=== PATIENT | male | born 1980 | race Caucasian/White ===

== ENCOUNTER 2018-07-21 10:28 | Emergency (ER) | payer OTHER ==
[2018-07-21 10:38] VITALS: BP 145/90; PULSE 64; TEMP 98.5; BMI 30.2
[2018-07-21] MEDS ORDERED: ACETAMINOPHEN 325 MG TABLET (FP) PO ONE (11:06)
--- NOTE | 2018-07-21 11:06 | PDOC ---
History of Present Illness - General History Source: Patient Exam Limitations: No Limitations - History of Present Illness Initial Comments: 07/21/18 11:26 The patient is a 37-year-old male with no past medical history presents to the emergency department s/p a fall. The patient reports he was at work, on a ladder that was placed on a wet floor on top of the plastic. The patient reports the ladder slipped, leading to the fall. The patient reports he sustained an injury to the right frontal forehead, elbows and bilateral legs. The patient presents with a laceration to the right knee thats covered in gauze. The patient reports pain to the elbows and the posterior neck. Denies LOC , headache, chest pain, shortness of breath, numbness, tingling or loss of sensation. Allergies: NKDA Social history: Occasional alcohol use, no tobacco or drug use reported PCP: None reported <Liya Horn - Last Filed: 07/21/18 11:25> <Amanda Child - Last Filed: 07/21/18 16:18> - General Chief Complaint: Injury Stated Complaint: FALL/INJURY Time Seen by Provider: 07/21/18 11:00 Past History <Liya Horn - Last Filed: 07/21/18 11:25> - Past Medical History COPD: No - Suicide/Smoking/Psychosocial Hx Smoking History: Never smoked Hx Alcohol Use: Yes (occasional) Drug/Substance Use Hx: No <Amanda Child - Last Filed: 07/21/18 16:18> - Past Medical History Allergies/Adverse Reactions: Allergies Allergy/AdvReac Type Severity Reaction Status Date / Time No Known Allergies Allergy Unverified 07/21/18 10:38 Home Medications: Ambulatory Orders Cephalexin Monohydrate [Keflex -] 500 mg PO Q6H #28 capsule 07/21/18 Review of Systems - Review of Systems Comments:: 07/21/18 11:25 GENERAL/CONSTITUTIONAL: No fever or chills. No weakness. HEAD, EYES, EARS, NOSE AND THROAT: +bump to the R side forehead. No change in vision. No ear pain or discharge. No sore throat. CARDIOVASCULAR: No chest pain or shortness of breath. RESPIRATORY: No cough, wheezing, or hemoptysis. GASTROINTESTINAL: No nausea, vomiting, diarrhea or constipation. GENITOURINARY: No dysuria, frequency, or change in urination. MUSCULOSKELETAL: +neck pain. No joint or muscle swelling or pain. No back pain. EXTREMITY: +cut to the right knee. Elbow pain SKIN: No rash NEUROLOGIC: No headache, vertigo, loss of consciousness, or change in strength/ sensation. ENDOCRINE: No increased thirst. No abnormal weight change. HEMATOLOGIC/LYMPHATIC: No anemia, easy bleeding, or history of blood clots. ALLERGIC/IMMUNOLOGIC: No hives or skin allergy. <Liya Horn - Last Filed: 07/21/18 11:25> *Physical Exam - Vital Signs Last Vital Signs Temp Pulse Resp BP Pulse Ox 98.5 F 64 18 145/90 100 07/21/18 10:36 07/21/18 10:36 07/21/18 10:36 07/21/18 10:36 07/21/18 10:36 <KoryLiya - Last Filed: 07/21/18 11:25> - Vital Signs Last Vital Signs Temp Pulse Resp BP Pulse Ox 98.5 F 64 18 145/90 100 07/21/18 10:36 07/21/18 10:36 07/21/18 10:36 07/21/18 10:36 07/21/18 10:36 - Physical Exam Comments: GENERAL: Awake, alert, and fully oriented, in no acute distress HEAD: Medium-sized hematoma to R upper forehead. +Localized tenderness. EYES: PERRLA, EOMI, sclera anicteric, conjunctiva clear ENT: Auricles normal inspection, hearing grossly normal, nares patent, oropharynx clear without exudates. Moist mucosa NECK: Normal ROM, supple, no lymphadenopathy, JVD, or masses LUNGS: Breath sounds equal, clear to auscultation bilaterally. No wheezes, and no crackles HEART: Regular rate and rhythm, normal S1 and S2, no murmurs, rubs or gallops ABDOMEN: Soft, nontender, normoactive bowel sounds. No guarding, no rebound. No masses EXTREMITIES: R knee with lac overlying the patella, no active bleeding. FROM, no N/V deficits. Remainder of extremities with normal range of motion, no edema. No clubbing or cyanosis. No cords, erythema, or tenderness NEUROLOGICAL: Cranial nerves II through XII grossly intact. Normal speech, normal gait. Motor and sensation intact. SKIN: Warm, Dry, normal turgor, no rashes or lesions noted. SPINE: +Midline tenderness C7. <Amanda Child - Last Filed: 07/21/18 16:18> Moderate Sedation - Procedure Monitoring Vital Signs: Procedure Monitoring Vital Signs Temperature 98.5 F 07/21/18 10:36 Pulse Rate 64 07/21/18 10:36 Respiratory Rate 18 07/21/18 10:36 Blood Pressure 145/90 07/21/18 10:36 O2 Sat by Pulse Oximetry (%) 100 07/21/18 10:36 <Liya Horn - Last Filed: 07/21/18 11:25> - Procedure Monitoring Vital Signs: Procedure Monitoring Vital Signs Temperature 98.5 F 07/21/18 10:36 Pulse Rate 64 07/21/18 10:36 Respiratory Rate 18 07/21/18 10:36 Blood Pressure 145/90 07/21/18 10:36 O2 Sat by Pulse Oximetry (%) 100 07/21/18 10:36 <Amanda Child - Last Filed: 07/21/18 16:18> Procedures - Laceration/Wound Repair Right Anterior Knee Wound Length: 2.6 to 5.0 cm Wound Explored: contaminated Wound's Depth, Shape: irregular (into subcutaneous tissue), contused tissue Irrigated w/ Saline: Yes Anesthesia: 1% Lidocaine Amount of Anesthetic (ccs): 6 Wound Debrided: minimal Wound Repaired With: Sutures Suture Size/Type: 4:0, nylon Number of Sutures: 9 Layer Closure: No Sterile Dressing Applied: Yes Splint Applied: Yes Type of Splint Applied: knee immobilizer Progress: +Hemostasis, patient tolerated well. Dressed with xeroform, kerlix. <Amanda Child - Last Filed: 07/21/18 16:18> ED Treatment Course - Medications Given in the ED: ED Medications Discontinued Medications Generic Name Dose Route Start Last Admin Trade Name Bahman PRN Reason Stop Dose Admin Acetaminophen 650 mg 07/21/18 11:06 07/21/18 11:21 Tylenol - PO 07/21/18 11:07 650 mg ONCE ONE Administration Diphtheria/Tetanus/Acell Pertussis 0.5 ml 07/21/18 11:07 07/21/18 11:21 Adacel Adolescent/Adult - IM 07/21/18 11:08 0.5 ml .ONCE ONE Administration <Liya Horn - Last Filed: 07/21/18 11:25> Medical Decision Making - Medical Decision Making 07/21/18 11:13 Will update tetanus booster in ED. CTH and c-spine, XR knee. Repair lac. <Amanda Child - Last Filed: 07/21/18 16:18> *DC/Admit/Observation/Transfer - Attestations Scribe Attestion: 07/21/18 11:27 Documentation prepared by Liya Horn, acting as outside medical sales representative for Amanda Child MD. <Liya Horn - Last Filed: 07/21/18 11:25> - Discharge Dispostion Decision to Admit order: No <Amanda Child - Last Filed: 07/21/18 16:18> Diagnosis at time of Disposition: Laceration of knee Qualifiers: Encounter type: initial encounter Laterality: unspecified laterality Qualified Code(s): S81.019A - Laceration without foreign body, unspecified knee, initial encounter Head injury Qualifiers: Encounter type: initial encounter Qualified Code(s): S09.90XA - Unspecified injury of head, initial encounter - Discharge Dispostion Disposition: HOME Condition at time of disposition: Stable - Prescriptions Prescriptions: Cephalexin Monohydrate [Keflex -] 500 mg PO Q6H #28 capsule - Referrals Referrals: Josué Albrecht MD [Staff Physician] - - Patient Instructions Printed Discharge Instructions: DI for Laceration Repair -- Simple, DI for Closed Head Injury Additional Instructions: Regrese a la mary de emergencias entre el 10 y el 12 de diciembre para que le quiten los puntos. Mantenga la herida seca y limpia, no use lociones, cremas, jabones o perxido. Si tiene enrojecimiento, dolor intenso, fiebre o cualquier otra inquietud, regrese a la mary de emergencias inmediatamente. Print Language: THAI
[2018-07-21] MEDS ORDERED: DIPHTH,PERTUSS(ACELL),TET VAC 0.5 ML VIAL IM ONE (11:07)
[2018-07-21] MEDS ORDERED: ACETAMINOPHEN 325 MG TABLET (FP) ONE (11:13)
[2018-07-21] MEDS ORDERED: DIPHTH,PERTUSS(ACELL),TET 0.5 ML DISP.SYRIN IM ONE (11:14)
[2018-07-21] MEDS ORDERED: LIDOCAINE HCL 1%, 10 MG/ML (50 mL VIAL) INF ONE (12:44)
[2018-07-21] MEDS ORDERED: LIDOCAINE HCL 2% (20ML MULTI-DOSE VIAL) NR ONE (12:48)
[2018-07-21] MEDS ORDERED: CEPHALEXIN MONOHYDRATE 500 MG CAPSULE (UD) PO ONE (13:14)
[2018-07-21] MEDS ORDERED: CEPHALEXIN MONOHYDRATE 500 MG CAPSULE (UD) ONE (13:37)
== END 2018-07-21 13:56 | disposition home or self-care (01) ==
LOC: JER 10:28
PROC: 3E0234Z Introduction of Serum, Toxoid and Vaccine into Muscle, Percutaneous Approach (ICD-10-PCS; principal; 2018-07-21)
PROC: 0JQN0ZZ Repair Right Lower Leg Subcutaneous Tissue and Fascia, Open Approach (ICD-10-PCS; 2018-07-21)
DX: S81.011A Laceration without foreign body, right knee, initial encounter (principal); W11.XXXA Fall on and from ladder, initial encounter; Y93.89 Activity, other specified; Y92.89 Other specified places as the place of occurrence of the external cause; Y99.0 Civilian activity done for income or pay
CPT/HCPCS: 70450-TC; 72125-TC; 73562-TC-RT-FY; 73590-TC-RT-FY; 99282-25

== ENCOUNTER 2018-07-31 09:49 | Emergency (ER) | payer SELFPAY ==
[2018-07-31 10:01] VITALS: BP 124/76; PULSE 80; TEMP 97.8; BMI 31.1
--- NOTE | 2018-07-31 11:13 | PDOC ---
Suture Removal/Wound Check HPI - History of Present Illness Chief Complaint: Revisit,Wound Recheck Stated Complaint: PAIN, RT FOOT Time Seen by Provider: 07/31/18 10:57 History Source: Yes: Patient Exam Limitations: Yes: No Limitations Treated at: [facility] - Previous ED Treatment Type of procedure performed on last visit: Yes: Laceration Repair Tetanus Immunization: Yes: Up to Date Antibiotics Prescribed: No - Onset of Previous Treatment Comment:: 07/31/18 11:09 Patient here for wound check of right knee fell from ladder 10 days ago and was evaluated here. X-ray was negative for fractures or problems however patient required multiple sutures to a patellar area laceration. Denies redness, swelling, purulent drainage problems with knee. Does not feel sutures are ready for removal. Is wearing knee immobilizer. Past History - Travel Traveled outside of the country in the last 30 days: No Close contact w/someone who was outside of country & ill: No - Past Medical History Allergies/Adverse Reactions: Allergies Allergy/AdvReac Type Severity Reaction Status Date / Time No Known Allergies Allergy Unverified 07/21/18 10:38 Home Medications: Ambulatory Orders Cephalexin Monohydrate [Keflex -] 500 mg PO Q6H #28 capsule 07/21/18 COPD: No CHF: No Liver Disease: No - Surgical History Abdominal Surgery: No Lung Surgery: No - Immunization History Immunization Up to Date: No - Suicide/Smoking/Psychosocial Hx Smoking History: Never smoked Have you smoked in the past 12 months: No Information on smoking cessation initiated: No Hx Alcohol Use: No Drug/Substance Use Hx: No Suture Removal/Wound Check PE - Physical Exam Laceration/Wound Check Symptoms: reports: None Current Severity Level: None *Review of Systems - Review of Systems Able to Perform ROS?: Yes Constitutional: Yes: Symptoms Reported, See HPI HEENTM: Yes: See HPI. No: Symptoms Reported Respiratory: No: Symptoms reported Musculoskeletal: Yes: Symptoms Reported, See HPI, Joint Pain, Joint Swelling ( right knee) All Other Systems: Reviewed and Negative *Physical Exam - Vital Signs Last Vital Signs Temp Pulse Resp BP Pulse Ox 97.8 F 80 18 124/76 100 07/31/18 09:58 07/31/18 09:58 07/31/18 09:58 07/31/18 09:58 07/31/18 09:58 - Physical Exam General Appearance: Yes: Nourished, Appropriately Dressed, Apparent Distress, Mild Distress HEENT: positive: TMs Normal, Pharynx Normal Neck: positive: Supple, Lymphadenopathy (R), Lymphadenopathy (L) Respiratory/Chest: positive: Lungs Clear, Normal Breath Sounds Musculoskeletal: negative: Vertebral Tenderness Extremity: positive: Normal Capillary Refill, Normal Inspection Integumentary: positive: Other Neurologic: positive: community organization worker II-XII NML intact, Fully Oriented, Alert, Normal Mood/ Affect, Normal Response, Motor Strength 5/5 Moderate Sedation - Procedure Monitoring Vital Signs: Procedure Monitoring Vital Signs Temperature 97.8 F 07/31/18 09:58 Pulse Rate 80 07/31/18 09:58 Respiratory Rate 18 07/31/18 09:58 Blood Pressure 124/76 07/31/18 09:58 O2 Sat by Pulse Oximetry (%) 100 07/31/18 09:58 Medical Decision Making - Medical Decision Making 07/31/18 knee laceration site not well approximated, will even an additional 1 week to allow for further wound healing. Patient encouraged to use immobilizer until sutures are removed and to rest *DC/Admit/Observation/Transfer Diagnosis at time of Disposition: Visit for wound check - Discharge Dispostion Disposition: HOME Condition at time of disposition: Stable Decision to Admit order: No - Referrals - Patient Instructions Printed Discharge Instructions: How to Care for a Surgical Wound Additional Instructions: Rest, ice to area on and off for 15 minutes 4-6 times a day Avoid heavy lifting or exercise until pain and swelling is resolved or until further directed Keep area highly elevated to reduce swelling Use splints/Maldonado wrap as directed return to emergency room in one week for suture removal, May use ibuprofen 2-200 mg tablets every 6 hours as needed for pain - Post Discharge Activity Forms/Work/School Notes: Back to Work
== END 2018-07-31 11:30 | disposition home or self-care (01) ==
LOC: JERFT 09:49
DX: Z48.01 Encounter for change or removal of surgical wound dressing (principal)
CPT/HCPCS: 99281-25

== ENCOUNTER 2018-08-07 09:27 | Emergency (ER) | payer SELFPAY ==
[2018-08-07 09:46] VITALS: BP 142/84; PULSE 62; TEMP 98.1; BMI 31.1
--- NOTE | 2018-08-07 11:27 | PDOC ---
Suture Removal/Wound Check HPI - History of Present Illness Chief Complaint: Suture/Staple Removal(Here) Stated Complaint: PAIN,RT FT Time Seen by Provider: 08/07/18 10:30 History Source: Yes: Patient Exam Limitations: Yes: No Limitations Treated at: [facility] ED - Previous ED Treatment Type of procedure performed on last visit: Yes: Laceration Repair Tetanus Immunization: Yes: Up to Date Antibiotics Prescribed: Yes (keflex) Past History - Travel Traveled outside of the country in the last 30 days: No Close contact w/someone who was outside of country & ill: No - Past Medical History Allergies/Adverse Reactions: Allergies Allergy/AdvReac Type Severity Reaction Status Date / Time No Known Allergies Allergy Unverified 08/07/18 09:43 Home Medications: Ambulatory Orders Cephalexin Monohydrate [Keflex -] 500 mg PO Q6H #28 capsule 07/21/18 COPD: No CHF: No Liver Disease: No - Surgical History Abdominal Surgery: No Lung Surgery: No - Immunization History Immunization Up to Date: No - Suicide/Smoking/Psychosocial Hx Smoking History: Never smoked Have you smoked in the past 12 months: No Hx Alcohol Use: No Drug/Substance Use Hx: No Suture Removal/Wound Check PE - Physical Exam Laceration/Wound Check Symptoms: reports: Resolved. denies: Fever, Redness, Bleeding Current Severity Level: None Maximum Severity Level: None Pain Localization: None Location of Laceration/Wound: right: Knee *Review of Systems - Review of Systems Constitutional: No: Chills, Fever, Weakness Integumentary: No: Bruising, Erythema, Pruritus Neurological: No: Numbness, Tingling, Weakness All Other Systems: Reviewed and Negative *Physical Exam - Vital Signs Last Vital Signs Temp Pulse Resp BP Pulse Ox 98.1 F 62 18 142/84 97 08/07/18 09:43 08/07/18 09:43 08/07/18 09:43 08/07/18 09:43 08/07/18 09:43 - Physical Exam General Appearance: Yes: Nourished, Appropriately Dressed, Apparent Distress Vascular Pulses: Dorsalis-Pedis (R): 2+, Doralis-Pedis (L): 2+ Musculoskeletal: negative: Decreased Range of Motion (Knee R ROM intactk) Extremity: positive: Normal Capillary Refill, Normal Inspection, Normal Range of Motion. negative: Tender Integumentary: positive: Normal Color, Dry, Warm, Other (Sutures in place to the R knee. Wound is well healed and approximated at this time) Neurologic: positive: Fully Oriented, Alert, Normal Mood/Affect, Normal Response , Motor Strength 5/5 Moderate Sedation - Procedure Monitoring Vital Signs: Procedure Monitoring Vital Signs Temperature 98.1 F 08/07/18 09:43 Pulse Rate 62 08/07/18 09:43 Respiratory Rate 18 08/07/18 09:43 Blood Pressure 142/84 08/07/18 09:43 O2 Sat by Pulse Oximetry (%) 97 08/07/18 09:43 Medical Decision Making - Medical Decision Making 08/07/18 11:41 Pt presents for suture removal to the R knee -Wound is well healed and approximated at this time. No signs of infection -9 sutures removed in the ED -DC home -I discussed the physical exam findings, ancillary test results and final diagnoses with the patient. I answered all of the patient's questions. The patient was satisfied with the care received and felt comfortable with the discharge plan and treatment plan. The Patient agrees to follow up with the primary care physician/specialist within 24-72 hours. Return precautions were given. *DC/Admit/Observation/Transfer Diagnosis at time of Disposition: Visit for suture removal - Discharge Dispostion Disposition: HOME Condition at time of disposition: Stable Decision to Admit order: No - Referrals Referrals: Josué Albrecht MD [Staff Physician] - - Patient Instructions Printed Discharge Instructions: DI for Suture Removal Additional Instructions: You had your sutures/ashley removed today. Please use bacitracin on the site for the next week. Avoid soaking the area with water for 1 more week as to what the wound fully heal. Follow-up with her primary care doctor as needed Return to the emergency department if you develop fevers, drainage from the site , increased pain, or have any changes in your symptoms. Te quitaron las suturas / grapas hoy. Por favor, use bacitracin en el sitio para la prxima semana. Evite remojar el khoa con agua cathleen 1 semana ms para que la herida sane por completo. Seguimiento con zuniga mdico de atencin primaria segn sea necesario Regrese al departamento de emergencias si desarrolla fiebre, drenaje del sitio, aumento del dolor o si tiene algn cambio en bethel sntomas. Print Language: TAJIK - Post Discharge Activity Forms/Work/School Notes: Back to Work
== END 2018-08-07 11:42 | disposition home or self-care (01) ==
LOC: JERFT 09:27
CPT/HCPCS: 99281-25

== ENCOUNTER 2022-06-06 14:49 | Inpatient (IN) | payer MEDICARE, OTHER ==
[2022-06-06 14:56] VITALS: BMI 30.2
[2022-06-06] MEDS ORDERED: SODIUM CHLORIDE 0.9% 500 ML INFUS.BAG IV ONE (17:40)
[2022-06-06] MEDS ORDERED: KETOROLAC TROMETHAMINE 15 MG/ML VIAL IVPUSH ONE (17:40)
[2022-06-06] MEDS ORDERED: FAMOTIDINE 20 MG/50 ML IVPB 20 MG/50 ML MG IVPB ONE ×2 (17:41→18:25)
[2022-06-06] MEDS ORDERED: ONDANSETRON 4 MG/2 ML VIAL IVPUSH ONE (17:47)
[2022-06-06] MEDS ORDERED: KETOROLAC TROMETHAMINE 15 MG/ML VIAL ONE (18:24)
[2022-06-06] MEDS ORDERED: ONDANSETRON 4 MG/2 ML VIAL ONE (18:24)
[2022-06-06 19:07] LABS: BASO % 0.5 % (0-2.0); EOS % 1.5 % (0-4.5); HEMATOCRIT 18.5 % (35.4-49); LYMPH % 18.3 % (8-40); MCHC 28.9 g/dl (32.0-35.9); MEAN CELL VOLUME 66.3 fl (80-96); MEAN PLT VOLUME 9.6 fl (7.5-11.1); MONO % 5.3 % (3.8-10.2); NEUT % 74.4 % (42.8-82.8); PLATELET COUNT 266 10^3/uL (134-434); RBC 2.78 M/mm3 (4.00-5.60); RDW 21.1 % (11.9-15.9); WHITE BLOOD COUNT 7.9 K/mm3 (4.0-10.0)
[2022-06-06 19:09] LABS: MCH 19.2 pg (25.7-33.7)
[2022-06-06 19:11] LABS: HEMOGLOBIN 5.3 GM/dL (11.7-16.9)
[2022-06-06 19:15] LABS: INR 1.16 (0.83-1.09); PROTHROMBIN TIME (PATIENT) 13.4 SEC (9.7-13.0)
[2022-06-06 19:25] LABS: PH,URINE 5.5 (5.0-8.0); URINE APPEARANCE CLEAR; URINE BILIRUBIN NEGATIVE (NEGATIVE); URINE COLOR YELLOW; URINE GLUCOSE (UA) NEGATIVE (NEGATIVE); URINE KETONE NEGATIVE (NEGATIVE); URINE LEUK ESTERASE NEGATIVE (NEGATIVE); URINE NITRITE NEGATIVE (NEGATIVE); URINE PROTEIN NEGATIVE (NEGATIVE); URINE UROBILINOGEN 0.2 mg/dL (0.2-1.0)
[2022-06-06 19:40] LABS: ALBUMIN 3.4 g/dl (3.4-5.0); BLOOD UREA NITROGEN 15.8 mg/dL (7-18); CALCIUM 8.8 mg/dL (8.5-10.1)
[2022-06-06 19:43] LABS: CREATININE 0.9 mg/dL (0.55-1.3)
[2022-06-06 19:45] LABS: BILIRUBIN,TOTAL 0.3 mg/dL (0.2-1); TOT PROT 6.8 g/dl (6.4-8.2)
[2022-06-06 21:28] LABS: ANISOCYTOSIS 2+; MACROCYTOSIS 0; OVALOCYTE 1+; TEAR DROP CELLS 1+
[2022-06-07 06:36] LABS: HEMATOCRIT 23.3 % (35.4-49); MCH 21.6 pg (25.7-33.7); MCHC 30.2 g/dl (32.0-35.9); MEAN CELL VOLUME 71.5 fl (80-96); MEAN PLT VOLUME 10.2 fl (7.5-11.1); PLATELET COUNT 228 10^3/uL (134-434); RBC 3.26 M/mm3 (4.00-5.60); RDW 23.5 % (11.9-15.9); WHITE BLOOD COUNT 7.3 K/mm3 (4.0-10.0)
[2022-06-07 06:53] LABS: ALBUMIN 2.9 g/dl (3.4-5.0); BLOOD UREA NITROGEN 15.7 mg/dL (7-18); CALCIUM 8.1 mg/dL (8.5-10.1); MAGNESIUM 2.1 mg/dL (1.8-2.4)
[2022-06-07 06:56] LABS: CREATININE 0.9 mg/dL (0.55-1.3)
[2022-06-07 06:57] LABS: TOT PROT 5.9 g/dl (6.4-8.2)
[2022-06-07] MEDS: PANTOPRAZOLE 40 MG TABLET PO SCH ×2 (10:28→21:42)
[2022-06-07] MEDS ORDERED: IRON SUCROSE INJECTION 200 MG in SODIUM CHLORIDE 90 ML IVPB ONE (10:30)
[2022-06-07] MEDS ORDERED: PHYTONADIONE 10 MG/1 ML AMP IVPB ONE (15:35)
[2022-06-08] MEDS: PANTOPRAZOLE 40 MG TABLET PO SCH ×2 (10:00→21:16)
[2022-06-08 10:03] LABS: BASO % 0.6 % (0-2.0); EOS % 2.3 % (0-4.5); HEMATOCRIT 27.2 % (35.4-49); HEMOGLOBIN 8.7 GM/dL (11.7-16.9); LYMPH % 12.5 % (8-40); MCH 22.7 pg (25.7-33.7); MCHC 32.2 g/dl (32.0-35.9); MEAN CELL VOLUME 70.6 fl (80-96); MEAN PLT VOLUME 9.5 fl (7.5-11.1); NEUT % 78.6 % (42.8-82.8); PLATELET COUNT 238 10^3/uL (134-434); RBC 3.85 M/mm3 (4.00-5.60); RDW 23.2 % (11.9-15.9); WHITE BLOOD COUNT 8.4 K/mm3 (4.0-10.0)
[2022-06-08 10:08] LABS: INR 1.15 (0.83-1.09); PROTHROMBIN TIME (PATIENT) 13.3 SEC (9.7-13.0)
[2022-06-08 10:31] LABS: CALCIUM 8.6 mg/dL (8.5-10.1)
[2022-06-08 10:32] LABS: ALBUMIN 3.2 g/dl (3.4-5.0); BLOOD UREA NITROGEN 13.9 mg/dL (7-18); MAGNESIUM 2.2 mg/dL (1.8-2.4)
[2022-06-08 10:36] LABS: CREATININE 0.9 mg/dL (0.55-1.3)
[2022-06-08 10:37] LABS: BILIRUBIN,TOTAL 0.7 mg/dL (0.2-1); TOT PROT 6.5 g/dl (6.4-8.2)
[2022-06-08] MEDS ORDERED: MIDAZOLAM HCL 2 MG/2 ML SINGLE DOSE VIAL ONE (10:52)
[2022-06-08 12:16] VITALS: RESP 16
[2022-06-08] MEDS ORDERED: IRON SUCROSE INJECTION 100 MG in SODIUM CHLORIDE 95 ML IVPB ONE (13:15)
[2022-06-08 23:07] VITALS: BP 116/92; PULSE 69; TEMP 99.3
[2022-06-09 08:06] LABS: CARCINOEMBRYONIC ANTIGEN 1.1 ng/mL (0.0-4.7)
== END 2022-06-08 22:30 | disposition short-term general hospital (02) | DRG 240 ==
LOC: JER 14:49 → JERBED 21:27 → J6S 06-07 09:33
PROVIDERS: ADMIT Internal Medicine; ATTEND Nurse Practitioner Acute Care
PROC: 30233N1 Transfusion of Nonautologous Red Blood Cells into Peripheral Vein, Percutaneous Approach (ICD-10-PCS; 2022-06-06)
PROC: 0DB68ZX Excision of Stomach, Via Natural or Artificial Opening Endoscopic, Diagnostic (ICD-10-PCS; principal; 2022-06-08 11:00)
DX: C16.9 Malignant neoplasm of stomach, unspecified (principal); K92.2 Gastrointestinal hemorrhage, unspecified; D53.9 Nutritional anemia, unspecified; B96.81 Helicobacter pylori [H. pylori] as the cause of diseases classified elsewhere; D50.9 Iron deficiency anemia, unspecified
CPT/HCPCS: 0241U-QW; 36415; 36430; 70450-TC; 74177-TC; 76705-TC; 80053; 81003; 82272; 82378; 82728; 83540; 83550; 83690; 83735; 84100; 84443; 85025; 85027; 85610; 86301; 86709; 86850; 86900; 86901; 86922; 87086; 88305-TC; 93005; 93010; 93306-TC; 99285-25; J1756; P9058; Q9967

== ENCOUNTER 2022-12-31 17:52 | Emergency (ER) | payer OTHER ==
[2022-12-31 18:08] VITALS: BMI 27.4
[2022-12-31] MEDS ORDERED: SODIUM CHLORIDE 2,041 ML IV ONE (18:23)
[2022-12-31] MEDS ORDERED: ONDANSETRON 4 MG/2 ML VIAL IVPUSH ONE (18:41)
[2022-12-31] MEDS ORDERED: morphine CARPU-JECT 2 MG/1 ML DISP.SYRIN IVPUSH ONE (18:42)
[2022-12-31] MEDS ORDERED: ONDANSETRON 4 MG/2 ML VIAL ONE (18:43)
[2022-12-31 19:03] LABS: BASO % 0.4 % (0-2.0); EOS % 0.3 % (0-4.5); HEMATOCRIT 21.8 % (35.4-49); HEMOGLOBIN 7.1 GM/dL (11.7-16.9); LYMPH % 7.1 % (8-40); MCH 27.2 pg (25.7-33.7); MCHC 32.6 g/dl (32.0-35.9); MEAN CELL VOLUME 83.6 fl (80-96); MEAN PLT VOLUME 9.1 fl (7.5-11.1); NEUT % 87.2 % (42.8-82.8); PLATELET COUNT 261 10^3/uL (134-434); RBC 2.61 M/mm3 (4.00-5.60); RDW 32.9 % (11.9-15.9); WHITE BLOOD COUNT 8.9 K/mm3 (4.0-10.0)
[2022-12-31 19:09] LABS: INR 1.24 (0.83-1.09); PROTHROMBIN TIME (PATIENT) 14.4 SEC (9.7-13.0)
[2022-12-31 19:12] LABS: ACTIVATED PTT 26.5 SECONDS (25.2-36.5)
[2022-12-31 19:20] LABS: CHLORIDE 105 mmol/L (98-107); POTASSIUM 4.2 mmol/L (3.5-5.1); SODIUM 139 mmol/L (136-145)
[2022-12-31 19:21] LABS: CALCIUM 8.4 mg/dL (8.5-10.1); GLUCOSE,RANDOM 194 mg/dL (74-106)
[2022-12-31 19:22] LABS: ALBUMIN 3.2 g/dl (3.4-5.0); ANION GAP 10 MMOL/L (8-16); BLOOD UREA NITROGEN 22.4 mg/dL (7-18); CO2 25 mmol/L (21-32)
[2022-12-31 19:25] LABS: CREATININE 1.1 mg/dL (0.55-1.3); SGOT/AST 129 U/L (15-37); SGPT/ALT 88 U/L (13-61)
[2022-12-31 19:27] LABS: TOT PROT 6.8 g/dl (6.4-8.2)
[2022-12-31 19:28] LABS: ALK PHOS 154 U/L (45-117)
[2022-12-31 19:54] LABS: LACTIC ACID 4.7 mmol/L (0.4-2.0)
[2023-01-01 02:09] VITALS: BP 105/57; PULSE 70; RESP 15; TEMP 98.2
== END 2023-01-01 05:40 | disposition short-term general hospital (02) ==
LOC: JER 17:52
PROC: 3E033NZ Introduction of Analgesics, Hypnotics, Sedatives into Peripheral Vein, Percutaneous Approach (ICD-10-PCS; principal; 2022-12-31)
PROC: 3E033GC Introduction of Other Therapeutic Substance into Peripheral Vein, Percutaneous Approach (ICD-10-PCS; 2022-12-31)
PROC: 3E0337Z Introduction of Electrolytic and Water Balance Substance into Peripheral Vein, Percutaneous Approach (ICD-10-PCS; 2022-12-31)
PROC: 3E0337Z Introduction of Electrolytic and Water Balance Substance into Peripheral Vein, Percutaneous Approach (ICD-10-PCS; 2022-12-31)
DX: R11.2 Nausea with vomiting, unspecified (principal); R10.9 Unspecified abdominal pain; R51.9 Headache, unspecified; R19.5 Other fecal abnormalities; R42 Dizziness and giddiness; D64.9 Anemia, unspecified; C26.0 Malignant neoplasm of intestinal tract, part unspecified; Z20.822 Contact with and (suspected) exposure to COVID-19
CPT/HCPCS: 0241U-QW; 36415; 71045-TC-FY; 74177-TC; 80053; 82550; 82553; 83605; 84484; 85025; 85610; 85730; 86850; 86900; 86901; 87040; 93005; 93010; 99285-25; Q9967

== ENCOUNTER 2023-07-07 11:37 | Inpatient (IN) | payer OTHER ==
[2023-07-07] MEDS ORDERED: DEXTROSE 50%-WATER 25 GM/50 ML DISP.SYRIN ONE ×5 (11:41→12:04)
[2023-07-07] MEDS ORDERED: NOREPINEPHRINE BITARTRATE 4,000 MCG in DEXTROSE 5%-WATER - 496 ML IV SCH (13:30)
[2023-07-07] MEDS ORDERED: NOREPINEPHRINE BITARTRATE 4 MG/4 ML ML IV ONE (13:42)
[2023-07-07 14:10] VITALS: BMI 17.2
[2023-07-07 15:24] LABS: HEMATOCRIT 21.9 % (35.4-49); MCH 29.2 pg (25.7-33.7); MCHC 29.3 g/dl (32.0-35.9); MEAN CELL VOLUME 99.7 fl (80-96); MEAN PLT VOLUME 7.4 fl (7.5-11.1); RBC 2.19 M/mm3 (4.00-5.60); RDW 18.6 % (11.9-15.9)
[2023-07-07 15:27] LABS: HEMOGLOBIN 6.4 GM/dL (11.7-16.9); WHITE BLOOD COUNT 1.9 K/mm3 (4.0-10.0)
[2023-07-07 15:28] VITALS: BP 59/42; PULSE 78
[2023-07-07 15:28] LABS: PLATELET COUNT 34 10^3/uL (134-434)
[2023-07-07] MEDS ORDERED: VASOPRESSIN 40 UNITS/100 ML BAG IV SCH (15:45)
[2023-07-07] MEDS ORDERED: PIPERACILLIN/TAZOB 4.5 GM 4.5 GM in DEXTROSE 5%-WATER 100 ML IVPB ONE (15:47)
[2023-07-07] MEDS ORDERED: MEROPENEM 1 GM in DEXTROSE 5%-WATER 100 ML IVPB ONE (15:47)
[2023-07-07 15:49] VITALS: RESP 16
[2023-07-07] MEDS ORDERED: VANCOMYCIN 1,000 MG in DEXTROSE 5%-WATER - 250 ML IVPB ONE (15:49)
[2023-07-07 15:53] LABS: ANISOCYTOSIS 2+; MACROCYTOSIS 1+
[2023-07-07 15:55] LABS: PLATELET ESTIMATE MARKEDLY DECREASED
[2023-07-07] MEDS ORDERED: PIPERACILLIN/TAZOB 4.5 GM 4.5 GM/100 ML BAG IVPB ONE (16:03)
[2023-07-07 16:22] LABS: ALBUMIN 0.9 g/dl (3.4-5.0); ALK PHOS 148 U/L (45-117); ANION GAP 17 mmol/L (4-13); BILIRUBIN,TOTAL 0.8 mg/dL (0.2-1); BLOOD UREA NITROGEN 109.8 mg/dL (7-18); CALCIUM 7.2 mg/dL (8.5-10.1); CHLORIDE 107 mmol/L (98-107); CO2 9 mmol/L (21-32); CREATININE 3.9 mg/dL (0.55-1.3); GLUCOSE,RANDOM 454 mg/dL (74-106); POTASSIUM 7.3 mmol/L (3.5-5.1); SGPT/ALT 308 U/L (13-61); SODIUM 133 mmol/L (136-145); TOT PROT 3.2 g/dl (6.4-8.2)
[2023-07-07 16:24] LABS: SGOT/AST QNS U/L (15-37)
[2023-07-07] MEDS ORDERED: MUPIROCIN 2% TOPICAL OINTMENT FOR DECOLONIZATION NS SCH (22:00)
[2023-07-07] MEDS ORDERED: CHLORHEXIDINE GLUCONATE 4% CLEANSER FOR DECOLONIZATION TP SCH (22:00)
== END 2023-07-07 16:40 | disposition expired | DRG 424 ==
LOC: JER 11:37 → JERBED 15:14
PROVIDERS: ADMIT Internal Medicine Pulmonary Disease; ATTEND Internal Medicine Pulmonary Disease
PROC: 5A1935Z Respiratory Ventilation, Less than 24 Consecutive Hours (ICD-10-PCS; principal; 2023-07-07)
PROC: 0BH17EZ Insertion of Endotracheal Airway into Trachea, Via Natural or Artificial Opening (ICD-10-PCS; 2023-07-07)
DX: E16.2 Hypoglycemia, unspecified (principal); I46.9 Cardiac arrest, cause unspecified; J96.90 Respiratory failure, unspecified, unspecified whether with hypoxia or hypercapnia; C16.9 Malignant neoplasm of stomach, unspecified; R55 Syncope and collapse; I95.9 Hypotension, unspecified
CPT/HCPCS: 36415; 71045-TC-FY; 80053; 82550; 82553; 82962; 84484; 85025; 87040; 87186; 93005; 93010; 99291; J3490